=== PATIENT | female | born 1955 | race Asian ===

== ENCOUNTER → 2016-08-20 | Outpatient (CLI) | payer OTHER ==
[~2016-08-20] MED LIST: LRT5 PO; SULF800T23 PO; [UNRECOGNIZED DRUG - REMARK]
--- NOTE | 2016-08-20 15:55 | MAMMOGRAPHY REPORT ---
BILATERAL DIGITAL SCREENING MAMMOGRAM TOMOSYNTHESIS WITH CAD: 08/20/2016 CLINICAL HISTORY: Routine screening examination. TECHNIQUE: Breast tomosynthesis in addition to standard 2D mammography was performed. Current study was also evaluated with a Computer Aided Detection (CAD) system. COMPARISON: Comparison is made to exams dated: 01/02/2015 mammogram, 12/22/2013 mammogram, 01/03/2012 mammogram, 11/06/2010 mammogram - [facility], 12/02/2007, and 11/24/2007. BREAST COMPOSITION: The tissue of both breasts is heterogeneously dense, which may obscure small mas ses. FINDINGS: The parenchymal pattern is unchanged. No developing mass, architectural distortion or clus ter of suspicious microcalcifications is seen in either breast. IMPRESSION: ACR BI-RADS CATEGORY 2: BENIGN There is no mammographic evidence of malignancy. A 1 year screening mammogram is recommended. The pa tient will receive written notification of the results. Approximately 10% of breast cancers are not detected with mammography. A negative mammographic report should not delay biopsy if a clinically suggestive mass is present. Bonny Chiang M.D. ay/:08/20/2016 14:56:34 Promotion Writer: Kimberly DUPREE(John)(Roddy), [facility] letter sent: Normal 1/2 BI-RADS Code: ACR BI-RADS Category 2: Benign
== END | disposition home or self-care (01) ==
LOC: C.MAMM 13:06
PROVIDERS: ATTEND Family Medicine
DX: Z12.31 Encounter for screening mammogram for malignant neoplasm of breast (principal)

== ENCOUNTER 2022-04-28 09:41 | Observation (INO) ==
[2022-04-28] MEDS ORDERED: ALBUT/IPRATROP 3MG/0.5MG NEB 3 ML VIAL NEB STA ×3 (10:08→11:43)
[2022-04-28] MEDS ORDERED: methylPREDNISolone 125 MG/2 ML VIAL IV STA (10:08)
--- NOTE | 2022-04-28 10:37 | XRay Report ---
XR chest 1V portable HISTORY: Shortness of breath. COMPARISON: Chest 11/14/2017. FINDINGS: The lungs are clear. The heart is normal in size. There is a mildly tortuous thoracic aorta again noted. No pleural effusions. No pneumothorax. IMPRESSION: No acute process. ACT 112: Negative or not required by law. Electronically signed by: Carlos Frank M.D. 04/28/2022 10:36 AM
[2022-04-28 10:45] LABS: Basophils # (auto) 0.03 K/uL (0-0.2); Basophils % (auto) 0.4 %; Eosinophils # (auto) 0.74 K/uL (0-0.50); Eosinophils % (auto) 8.9 %; Hematocrit (blood only) 42.6 % (37.0-47.0); Hemoglobin 14.5 g/dl (12.0-16.0); Immature Granulocytes # (auto) 0.02 K/uL (0.01-0.20); Immature Granulocytes % (auto) 0.2 %; Lymphocytes # (auto) 1.83 K/uL (1.2-3.4); Mean Corpuscular Hemoglobin 30.8 pg (25.0-34.0); Mean Corpuscular Volume 90.4 fL (80.0-100.0); Mean Platelet Volume 10.5 fL (9.4-12.4); Monocytes # (auto) 0.46 K/uL (0.11-0.59); Monocytes % (auto) 5.5 %; Neutrophils # (auto) 5.22 K/uL (1.40-6.50); Platelet Count 253 K/uL (130-400); RDW Coefficient of Variation 12.3 % (11.5-14.5); Red Blood Count 4.71 M/uL (4.20-5.40)
[2022-04-28 10:46] LABS: Base Excess VBG 0.2 mEq/L; HCO3 VBG 27 mmol/L; Oxygen Saturation VBG 83.7 %; PCO2 VBG 48 mmHg (38-50); PO2 VBG 51 mmHg; pH VBG 7.35 (7.36-7.41)
[2022-04-28 11:02] LABS: Albumin Level 4.2 gm/dl (3.4-5.0); BUN Creatinine Ratio 23.3 (10-20); Bilirubin Direct 0.2 mg/dl (0-0.2); Bilirubin,Total 0.7 mg/dl (0.2-1.0); Calcium 9.1 mg/dl (8.5-10.1); Creatinine Clr Calc Pharmacy 79.7 ml/min; Est GFR (African American) 110.9 ml/min; Est GFR (Non-African American) 95.7 ml/min; Magnesium 1.9 mg/dl (1.7-2.4); Total Protein 7.3 gm/dl (6.0-8.3)
[2022-04-28 11:06] LABS: Troponin I High Sensitivity 4.9 pg/ml (0-14)
[2022-04-28 11:10] LABS: Partial Thromboplastin Time 26.7 Seconds (21.0-31.0); Prothrombin Time 10.7 Seconds (9.0-12.0)
[2022-04-28 11:36] LABS: Influenza A virus by PCR Negative (Neg); Influenza B virus by PCR Negative (Neg); RSV by PCR Negative (Neg); SARS CoV2 RNA(COVID-19) Ceph NEGATIVE (Negative)
[2022-04-28 12:28] LABS: Appearance Urine Clear (Clear); Bacteria Urine Automated Negative (Negative); Bilirubin Urine Negative (Negative); Blood Urine Trace (Negative); Cast Urine Automated 0 /lpf (0-5); Color Urine Yellow; Epithelial Cell Urine Auto >30 /lpf (0-5); Glucose Urine UA Negative (Negative); Ketones Urine Negative (Negative); Leukocyte Esterase Urine Negative (Negative); Nitrite Urine Negative (Negative); Protein Urine Negative (Negative); RBC Urine Automated 0-4 /hpf (0-4); Specific Gravity Urine 1.012 (1.000-1.030); Urobilinogen Urine Negative (Negative); pH Urine 6.5 (4.5-7.5)
--- NOTE | 2022-04-28 12:41 | Emergency Department Note ---
History of Present Illness General Chief Complaint: Shortness of Breath/Dyspnea Stated Complaint: DIFFICULTY BREATHING, COUGH Time Seen by Provider: 04/28/22 10:02 History of Present Illness Provider Complaint: shortness of breath and cough Onset (ago): week(s) (1) Severity: moderate Consistency/Duration: + progressively worsening Maximum Pain Intensity: 8 Relieved By: + nothing Exacerbated By: + exertion, + coughing and + talking Context: + recent illness; no choking/aspiration or no recent travel Known history of: COPD Associated symptoms: + cough, + wheezing, + sputum production and + chest congestion; no fever, no palpitations or no hemoptysis HPI Narrative: Patient also reports dysuria Related Data Home oxygen amount: none Home Medications Medication Instructions Recorded Confirmed Type albuterol sulfate 90 mcg/actuation 2 puff inhalation QID 04/28/22 04/28/22 History aerosol inhaler alprazolam 0.5 mg tablet 0.5 mg PO TID PRN Anxiety 04/28/22 04/28/22 History atorvastatin 10 mg tablet 10 mg PO QAM 04/28/22 04/28/22 History metformin 500 mg tablet,extended 500 mg PO QAM 04/28/22 04/28/22 History release 24 hr Allergies Allergy/AdvReac Type Severity Reaction Status Date / Time Penicillins Allergy Unknown Verified 04/28/22 10:44 Past Med/Surg History Medical History COPD (chronic obstructive pulmonary disease) No pertinent family history Surgical History No pertinent past surgical history Social History Smoking Status: Current every day smoker Feels Safe at Home: Yes Physical Exam Vital Signs: Vital Signs - 24 hr 04/28/22 09:49 04/28/22 10:02 04/28/22 10:00 Temperature 36.8 C Temperature Source Temporal Artery Sc an Pulse Rate 100 H Pulse Rate from Sp O2 Sensor Respiratory Rate 22 Respiratory Effort / Characteristics Labored Non-Labored Sponta neous Respiratory Depth Normal Respiratory Patter n Regular Blood Pressure 174/103 H Blood Pressure Ene n 126 Pulse Oximetry 90 89 L Oxygen Delivery Me thod Room Air Room Air Room Air Oxygen Flow Rate 0 Sepsis Recent Feve r Within 48 Hours No Sepsis New/Unexpla ined Change in Men raul Status No Sepsis Action Take n by Nursing No Action Required Oxygen Flow Rate - Titration 2 Pulse Oximetry Pos t Tiitration 96 04/28/22 10:00 04/28/22 10:12 04/28/22 10:11 Temperature Temperature Source Pulse Rate 100 H 100 H Pulse Rate from Sp O2 Sensor 99 H Respiratory Rate 18 Respiratory Effort / Characteristics Respiratory Depth Respiratory Patter n Blood Pressure Blood Pressure Ene n Pulse Oximetry 89 L 95 Oxygen Delivery Me thod Room Air Nasal Cannula Oxygen Flow Rate 0 2 Sepsis Recent Feve r Within 48 Hours Sepsis New/Unexpla ined Change in Men raul Status Sepsis Action Take n by Nursing Oxygen Flow Rate - Titration Pulse Oximetry Pos t Tiitration 04/28/22 11:00 04/28/22 11:00 Temperature Temperature Source Pulse Rate 94 H Pulse Rate from Sp O2 Sensor 93 H Respiratory Rate 19 Respiratory Effort / Characteristics Respiratory Depth Respiratory Patter n Blood Pressure 153/88 H Blood Pressure Ene n 109 Pulse Oximetry 97 Oxygen Delivery Me thod Nebulizer Oxygen Flow Rate Sepsis Recent Feve r Within 48 Hours Sepsis New/Unexpla ined Change in Men raul Status Sepsis Action Take n by Nursing Oxygen Flow Rate - Titration Pulse Oximetry Pos t Tiitration Physical Exam: Physical Exam GENERAL: oriented to person, place, and time. appears well-developed and well- nourished. HENT: Exam performed. - Head: Normocephalic and atraumatic. EYES: Conjunctivae and EOM are normal. Right eye exhibits no discharge. Left eye exhibits no discharge. No scleral icterus. NECK: Normal range of motion. Neck supple. No JVD present. CV: Normal rate, regular rhythm, normal heart sounds and intact distal pulses. There is no peripheral edema. Palpable radial pulses bue. PULM/CHEST: Diffuse expiratory wheezes. ABD: The abdomen is soft. There is no tenderness. NEURO: Motor and sensation grossly intact. SKIN: Skin is warm and dry. He is not diaphoretic. PSYCH: normal mood and affect. Behavior is normal. Judgment and thought content normal. Course Course 1002: The patient was evaluated in room B5. A complete history and physical exam was performed Cardiac monitoring: An order was placed for continuous cardiac monitoring. The monitor shows a rate of 90 with sinus rhythm interpreted by me Patient was found to be hypoxic at 88% on room air. Supplemental oxygen was applied which improved the patient with oxygen saturation. Breathing treatments and steroids ordered for the patient. 1130: Vital signs stable on supplemental oxygen via nasal cannula. Labs and imaging within normal limits. Status post DuoNeb Solu-Medrol the patient's wheezing is improved. Patient will be admitted to the [facility] team. Administered Medications Discontinued Medications Albuterol (Albut/Ipratrop 3mg/0.5mg Neb 3 Ml Vial) 3 ml NEB NOW STA; Protocol Stop: 04/28/22 10:09 Last Admin: 04/28/22 10:39 Dose: 3 ml Documented By: ABILIO Albuterol (Albut/Ipratrop 3mg/0.5mg Neb 3 Ml Vial) 3 ml NEB NOW STA; Protocol Stop: 04/28/22 10:11 Last Admin: 04/28/22 10:39 Dose: 3 ml Documented By: ABILIO Albuterol (Albut/Ipratrop 3mg/0.5mg Neb 3 Ml Vial) 3 ml NEB NOW STA; Protocol Stop: 04/28/22 11:44 Last Admin: 04/28/22 12:25 Dose: 3 ml Documented By: ABILIO Methylprednisolone (Methylprednisolone 125 Mg/2 Ml Vial) 125 mg IV NOW STA Stop: 04/28/22 10:09 Last Admin: 04/28/22 10:39 Dose: 125 mg Documented By: ABILIO Medical Decision Making Laboratory Data Attestation: I reviewed the patient's lab results. 04/28/22 10:21 04/28/22 10:21 Lab Results 04/28/22 04/28/22 04/28/22 Range/Units 10:21 10:21 10:21 WBC 8.30 (4.8-10.8) K/ul RBC 4.71 (4.20-5.40) M/uL Hgb 14.5 (12.0-16.0) g/dl Hct 42.6 (37.0-47.0) % MCV 90.4 (80.0-100.0) fL MCH 30.8 (25.0-34.0) pg MCHC 34.0 (32.0-36.0) g/dL RDW Std Deviation 41.0 (36.4-46.3) fL RDW Coeff of Darcy 12.3 (11.5-14.5) % Plt Count 253 (130-400) K/uL MPV 10.5 (9.4-12.4) fL Immature Gran % (Auto) 0.2 % Neut % (Auto) 63.0 % Lymph % (Auto) 22.0 % Clayton % (Auto) 5.5 % Eos % (Auto) 8.9 % Baso % (Auto) 0.4 % Neut # (Auto) 5.22 (1.40-6.50) K/uL Lymph # (Auto) 1.83 (1.2-3.4) K/uL Clayton # (Auto) 0.46 (0.11-0.59) K/uL Eos # (Auto) 0.74 H (0-0.50) K/uL Baso # (Auto) 0.03 (0-0.2) K/uL Immature Gran # (Auto) 0.02 (0.01-0.20) K/uL PT 10.7 (9.0-12.0) Seconds INR 1.0 (0.9-1.1) APTT 26.7 (21.0-31.0) Seconds PTT Ratio 1.0 VBG pH (7.36-7.41) VBG pCO2 (38-50) mmHg VBG pO2 mmHg VBG HCO3 mmol/L VBG O2 Saturation % VBG Base Excess mEq/L Sodium 140 (136-145) mmol/L Potassium 4.0 (3.5-5.1) mmol/L Chloride 108 H (98-107) mmol/L Carbon Dioxide 27 (21-32) mmol/L Anion Gap 5 (3-11) BUN 14 (6-23) mg/dl Creatinine 0.60 (0.6-1.2) mg/dl Est Cr Clr Drug Dosing 79.7 ml/min Est GFR ( Amer) 110.9 ml/min Est GFR (Non-Af Amer) 95.7 ml/min BUN/Creatinine Ratio 23.3 H (10-20) Glucose 233 H (70-99(Fasting)) mg/dl Calcium 9.1 (8.5-10.1) mg/dl Magnesium 1.9 (1.7-2.4) mg/dl Total Bilirubin 0.7 (0.2-1.0) mg/dl Direct Bilirubin 0.2 (0-0.2) mg/dl AST 16 (13-39) U/L ALT 17 (7-52) U/L Alkaline Phosphatase 82 (34-104) U/L Troponin I High Sens 4.9 (0-14) pg/ml Total Protein 7.3 (6.0-8.3) gm/dl Albumin 4.2 (3.4-5.0) gm/dl Lipase 26 (11-82) U/L Urine Color Urine Appearance (Clear) Urine pH (4.5-7.5) Ur Specific [place] (1.000-1.030) Urine Protein (Negative) Urine Glucose (UA) (Negative) Urine Ketones (Negative) Urine Blood (Negative) Urine Nitrite (Negative) Urine Bilirubin (Negative) Urine Urobilinogen (Negative) Ur Leukocyte Esterase (Negative) Urine WBC (Auto) (0-5) /hpf Urine RBC (Auto) (0-4) /hpf U Hyaline Cast (Auto) (0-5) /lpf U Epithel Cells (Auto) (0-5) /lpf Urine Bacteria (Auto) (Negative) SARS-CoV-2 (PCR) (Negative) Influenza Type A (PCR) (Neg) Influenza Type B (PCR) (Neg) RSV (RT-PCR) (Neg) 04/28/22 04/28/22 04/28/22 Range/Units 10:25 10:51 12:00 WBC (4.8-10.8) K/ul RBC (4.20-5.40) M/uL Hgb (12.0-16.0) g/dl Hct (37.0-47.0) % MCV (80.0-100.0) fL MCH (25.0-34.0) pg MCHC (32.0-36.0) g/dL RDW Std Deviation (36.4-46.3) fL RDW Coeff of Darcy (11.5-14.5) % Plt Count (130-400) K/uL MPV (9.4-12.4) fL Immature Gran % (Auto) % Neut % (Auto) % Lymph % (Auto) % Clayton % (Auto) % Eos % (Auto) % Baso % (Auto) % Neut # (Auto) (1.40-6.50) K/uL Lymph # (Auto) (1.2-3.4) K/uL Clayton # (Auto) (0.11-0.59) K/uL Eos # (Auto) (0-0.50) K/uL Baso # (Auto) (0-0.2) K/uL Immature Gran # (Auto) (0.01-0.20) K/uL PT (9.0-12.0) Seconds INR (0.9-1.1) APTT (21.0-31.0) Seconds PTT Ratio VBG pH 7.35 L (7.36-7.41) VBG pCO2 48 (38-50) mmHg VBG pO2 51 mmHg VBG HCO3 27 mmol/L VBG O2 Saturation 83.7 % VBG Base Excess 0.2 mEq/L Sodium (136-145) mmol/L Potassium (3.5-5.1) mmol/L Chloride (98-107) mmol/L Carbon Dioxide (21-32) mmol/L Anion Gap (3-11) BUN (6-23) mg/dl Creatinine (0.6-1.2) mg/dl Est Cr Clr Drug Dosing ml/min Est GFR ( Amer) ml/min Est GFR (Non-Af Amer) ml/min BUN/Creatinine Ratio (10-20) Glucose (70-99(Fasting)) mg/dl Calcium (8.5-10.1) mg/dl Magnesium (1.7-2.4) mg/dl Total Bilirubin (0.2-1.0) mg/dl Direct Bilirubin (0-0.2) mg/dl AST (13-39) U/L ALT (7-52) U/L Alkaline Phosphatase (34-104) U/L Troponin I High Sens (0-14) pg/ml Total Protein (6.0-8.3) gm/dl Albumin (3.4-5.0) gm/dl Lipase (11-82) U/L Urine Color Yellow Urine Appearance Clear (Clear) Urine pH 6.5 (4.5-7.5) Ur Specific [place] 1.012 (1.000-1.030) Urine Protein Negative (Negative) Urine Glucose (UA) Negative (Negative) Urine Ketones Negative (Negative) Urine Blood Trace H (Negative) Urine Nitrite Negative (Negative) Urine Bilirubin Negative (Negative) Urine Urobilinogen Negative (Negative) Ur Leukocyte Esterase Negative (Negative) Urine WBC (Auto) 1-5 (0-5) /hpf Urine RBC (Auto) 0-4 (0-4) /hpf U Hyaline Cast (Auto) 0 (0-5) /lpf U Epithel Cells (Auto) >30 H (0-5) /lpf Urine Bacteria (Auto) Negative (Negative) SARS-CoV-2 (PCR) NEGATIVE (Negative) Influenza Type A (PCR) Negative (Neg) Influenza Type B (PCR) Negative (Neg) RSV (RT-PCR) Negative (Neg) Imaging Data Attestation: I personally reviewed and interpreted this imaging study as follows: My Impression: Chest x-ray negative. Airway clear. No pneumothorax. No consolidation. No cardiomegaly or cephalization.. No free air under the diaphragm. No fractures of the skeletal structures. Radiologist's Impression: Chest X-Ray 04/28/22 10:08 XR chest 1V portable HISTORY: Shortness of breath. COMPARISON: Chest 11/14/2017. FINDINGS: The lungs are clear. The heart is normal in size. There is a mildly tortuous thoracic aorta again noted. No pleural effusions. No pneumothorax. IMPRESSION: No acute process. ACT 112: Negative or not required by law. Electronically signed by: Carlos Frank M.D. 04/28/2022 10:36 AM ECG Data Attestation: I personally reviewed and interpreted this ECG as follows: Interpretation: Sinus rhythm with rate 90. OH QRS and QTc intervals within normal limits. No ST elevation or ST depression MDM Narrative 1002: The patient was evaluated in room B5. A complete history and physical exam was performed Cardiac monitoring: An order was placed for continuous cardiac monitoring. The monitor shows a rate of 90 with sinus rhythm interpreted by me Patient was found to be hypoxic at 88% on room air. Supplemental oxygen was applied which improved the patient with oxygen saturation. Breathing treatments and steroids ordered for the patient. 1130: Vital signs stable on supplemental oxygen via nasal cannula. Labs and imaging within normal limits. Status post DuoNeb Solu-Medrol the patient's wheezing is improved. Patient will be admitted to the [facility] team. Impression & Plan Hypoxia, COPD (chronic obstructive pulmonary disease) Critical Care Time Critical Care Time: Yes Total Critical Care Time: 41 I have personally spent greater than 41 minutes of critical care time in the direct management of this patient. This includes bedside care, interpretation of diagnostic studies, and testing, discussion with consultants, patient, and family members, and other required patient management activities. This 41 mi nutes is in excess of all separately billable procedures. Discharge Plan Visit Data Chief Complaint: Shortness of Breath/Dyspnea Stated Complaint: DIFFICULTY BREATHING, COUGH ED Provider: Miguel Musa Discharge Problem: Hypoxia, COPD (chronic obstructive pulmonary disease) Patient Disposition: Admitted As Inpatient Forms Stand Alone Forms: [facility] Prescriptions Prescriptions: No Action atorvastatin 10 mg tablet 10 mg PO QAM alprazolam 0.5 mg tablet 0.5 mg PO TID PRN (Reason: Anxiety) albuterol sulfate 90 mcg/actuation HFA aerosol inhaler 2 puff INHALATION QID metformin 500 mg tablet extended release 24 hr 500 mg PO QAM Referrals Referrals: Manuela Hay PA-C [Primary Care Provider] -
[2022-04-28] MEDS ORDERED: ONDANSETRON INJ 2 MG/ML 2 ML VIAL IV PRN (14:22)
[2022-04-28] MEDS ORDERED: ALBUT/IPRATROP 3MG/0.5MG NEB 3 ML VIAL NEB PRN (14:22)
[2022-04-28] MEDS ORDERED: GLUCOSE 40% GEL 15 GM TUBE PO PRN (14:22)
[2022-04-28] MEDS ORDERED: ALPRAZolam 0.5 MG TABLET PO PRN (14:22)
[2022-04-28] MEDS ORDERED: GLUCAGON FOR INJ 1 MG VIAL SQ PRN (14:22)
[2022-04-28] MEDS ORDERED: ACETAMINOPHEN 325 MG TAB PO PRN (14:22)
[2022-04-28] MEDS ORDERED: CARBOHYDRATES FOR HYPOGLYCEMIA PO PRN (14:22)
[2022-04-28] MEDS ORDERED: NITROGLYCERIN SL 0.4 MG/TAB TAB SL PRN (14:22)
[2022-04-28] MEDS ORDERED: GLUCOSE 10 TAB/TUBE PO PRN (14:22)
[2022-04-28] MEDS ORDERED: ALBUTEROL HFA 8 GM INHALER INH PRN (14:22)
[2022-04-28] MEDS ORDERED: DEXTROSE 50% 50 ML SYRINGE IV PRN (14:22)
[2022-04-28] MEDS ORDERED: POLYETHYLENE (MIRALAX) 17 GM PACK PO PRN (14:22)
--- NOTE | 2022-04-28 14:41 | History and Physical Report ---
DATE OF ADMISSION: 04/28/2022. CHIEF COMPLAINT: Shortness of breath. HISTORY OF PRESENT ILLNESS: This is a 67-year-old female with past medical history significant for diabetes, COPD, osteoarthritis, depression, generalized anxiety disorder, presents with shortness of breath, going for last 5 to 6 days, bringing cough, bringing whitish phlegm. Denies any fevers. Has some chest soreness from coughing. Has some abdominal soreness more with coughing. Normal bowel and bladder movements. Denies any headache. No blurred visions. Has some runny nose that is improving. No sore throat. Currently, resting comfortably and hemodynamically stable. ALLERGIES: PENICILLIN. PAST MEDICAL HISTORY: As mentioned above. PAST SURGICAL HISTORY: , colonoscopy, cystoscopy, lithotripsy. MEDICATIONS: The patient is on albuterol 2 puffs p.r.n., alprazolam 0.5 mg p.o. t.i.d. p.r.n., atorvastatin 10 mg p.o. a.m., metformin 500 mg p.o. a.m. FAMILY HISTORY: Significant for mother had cancer, eye problems, heart disorder and stroke; father had eye problems. SOCIAL HISTORY: . Smoked half pack a day for last 25 years. No alcohol, no drug use. REVIEW OF SYSTEMS: As per HPI. Rest of the review of systems is negative. PHYSICAL EXAMINATION: GENERAL: The patient is alert, oriented, not in acute distress. VITAL SIGNS: Temperature 36.8, pulse 94, respiratory rate 19, blood pressure 153/88, oxygen 97%. HEENT: Pupils equal, round and reactive to light. Oral mucosa moist. NECK: No JVD, no neck masses. CARDIOVASCULAR: S1 and S2 heard. Regular rate and rhythm. No murmur, no gallop. RESPIRATORY SYSTEM: Normal AP diameter. No accessory muscle use. No wheezing, no crackles. ABDOMEN: Soft, bowel sounds present. RESPIRATORY: Normal AP diameter. No accessory muscle use. Mild occasional wheezing, no crackles. ABDOMEN: Soft, bowel sounds present, nontender, no distention. CENTRAL NERVOUS SYSTEM: Cranial nerves II through XII grossly intact, nonfocal. EXTREMITIES: No edema, no erythema. LABORATORY DATA: WBC 8.3, hemoglobin 14.5, hematocrit 42.6, platelets 253. PT 10.7, INR 1, APTT 26.7. Venous blood gas, pH of 7.35, pCO2 of 48. Sodium 140, potassium 4, chloride 108, bicarbonate 27, BUN 14, creatinine 0.6, serum glucose 233, calcium 9.1, magnesium 1.9, total bilirubin 0.7, direct bilirubin 0.2, AST 16, ALT 17, alkaline phosphatase 82. Troponin I high sensitivity 4.9. Lipase 26. Urinalysis negative. SARS-CoV-2 PCR negative. Influenza A and B PCR negative. RSV PCR negative. IMAGING DATA: Chest x-ray, no acute process. EKG: Normal sinus rhythm at a rate 90, nonspecific ST abnormalities. ASSESSMENT AND PLAN: This is a 67-year-old female who presents with shortness of breath. 1. Shortness of breath, Mostly chronic obstructive pulmonary disease exacerbation, history of ongoing tobacco abuse. Uses only albuterol inhaler at home. We will place on Solu-Medrol 40 t.i.d., DuoNebs around the clock and p.r.n. p.o. doxycycline. Follow the response. The patient was 89% on room air, currently requiring oxygen Two step prior to discharge. 2. History of diabetes, on metformin. Hold the metformin, placed on insulin sliding scale. Follow the blood sugars. The patient is getting steroids. 3. Hyperlipidemia, on statin. 4. Tobacco abuse, needs counseling. 5. Generalized anxiety disorder, on Ativan p.r.n. 6. Chest soreness. Mostlly from cough. Will follow repeat ekg and troponin 7. Abdominal soreness. If worsening will do image study 8. Deep venous thrombosis prophylaxis, on Lovenox. DISPOSITION: Closely monitor in the med tele. Expect to discharge home and follow with family doctor. Job ID: [id number] [facility]
[2022-04-28] MEDS: ALBUT/IPRATROP 3MG/0.5MG NEB 3 ML VIAL NEB SCH ×2 (15:11→19:14)
[2022-04-28] MEDS: methylPREDNISolone 40 MG in SYRINGE 0 ML IV SCH ×2 (15:41→20:47)
[2022-04-28] MEDS: ENOXAPARIN INJ 40 MG/0.4 ML SYR SQ SCH (15:41)
[2022-04-28] MEDS: DOXYCYCLINE HYCLATE 100 MG CAP PO SCH ×2 (15:41→20:49)
[2022-04-28] MEDS: INSULIN ASPART PER UNIT SC SCH ×2 (16:51→20:47)
--- NOTE | 2022-04-28 19:04 | Electrocardiogram Report ---
Test Reason : Blood Pressure : / mmHG Vent. Rate : 090 BPM Atrial Rate : 090 BPM P-R Int : 140 ms QRS Dur : 090 ms QT Int : 372 ms P-R-T Axes : 062 077 047 degrees QTc Int : 455 ms Poor data quality, interpretation may be adversely affected Normal sinus rhythm Nonspecific ST abnormality Abnormal ECG No previous ECGs available Confirmed by Mumtaz Nash ([id number]) on 04/28/2022 7:04:16 PM Referred By: REFERRED SELF Confirmed By:Mumtaz Nash
[2022-04-29 06:32] LABS: BUN Creatinine Ratio 37.3 (10-20); Calcium 9.3 mg/dl (8.5-10.1); Creatinine Clr Calc Pharmacy 71.9 ml/min; Est GFR (African American) 106.9 ml/min; Est GFR (Non-African American) 92.2 ml/min
[2022-04-29 06:36] LABS: Basophils # (auto) 0.02 K/uL (0-0.2); Basophils % (auto) 0.1 %; Hematocrit (blood only) 40.2 % (37.0-47.0); Hemoglobin 13.7 g/dl (12.0-16.0); Immature Granulocytes # (auto) 0.09 K/uL (0.01-0.20); Immature Granulocytes % (auto) 0.5 %; Lymphocytes # (auto) 1.73 K/uL (1.2-3.4); Lymphocytes % (auto) 9.1 %; Mean Corpuscular Hemoglobin 30.3 pg (25.0-34.0); Mean Corpuscular Hgb Conc 34.1 g/dL (32.0-36.0); Mean Corpuscular Volume 88.9 fL (80.0-100.0); Monocytes # (auto) 0.27 K/uL (0.11-0.59); Monocytes % (auto) 1.4 %; Neutrophils % (auto) 88.9 %; Platelet Count 278 K/uL (130-400); RDW Coefficient of Variation 12.3 % (11.5-14.5); RDW Standard Deviation 40.5 fL (36.4-46.3); Red Blood Count 4.52 M/uL (4.20-5.40); White Blood Count 19.11 K/ul (4.8-10.8)
[2022-04-29 06:39] LABS: Troponin I High Sensitivity 4.8 pg/ml (0-14)
[2022-04-29] MEDS: ALBUT/IPRATROP 3MG/0.5MG NEB 3 ML VIAL NEB SCH ×3 (07:06→15:58)
[2022-04-29] MEDS ORDERED: ATORVASTATIN 10 MG TAB PO SCH (09:00)
[2022-04-29] MEDS: methylPREDNISolone 40 MG in SYRINGE 0 ML IV SCH ×2 (09:08→13:11)
[2022-04-29] MEDS: DOXYCYCLINE HYCLATE 100 MG CAP PO SCH (09:08)
[2022-04-29] MEDS: INSULIN ASPART PER UNIT SC SCH ×3 (09:08→16:49)
[2022-04-29 10:57] LABS: Estimated Average Glucose 140 mg/dl; Hemoglobin A1C 6.5 % (4.5-5.6)
[2022-04-29] MEDS ORDERED: LANTUS PER UNIT CHARGE SQ SCH (12:00)
--- NOTE | 2022-04-29 12:40 | Electrocardiogram Report ---
Test Reason : Blood Pressure : / mmHG Vent. Rate : 075 BPM Atrial Rate : 075 BPM P-R Int : 140 ms QRS Dur : 092 ms QT Int : 456 ms P-R-T Axes : 032 035 021 degrees QTc Int : 509 ms Normal sinus rhythm T wave abnormality, consider anterolateral ischemia Prolonged QT Abnormal ECG When compared with ECG of 28-APR-2022 10:13, Nonspecific T wave abnormality, worse in Inferior leads T wave inversion now evident in Anterolateral leads Confirmed by Oscar Cornelius ([id number]) on 04/29/2022 12:40:02 PM Referred By: REFERRED SELF Confirmed By:Oscar Cornelius
[2022-04-29] MEDS ORDERED: OPTIRAY 320 500ml IV ONE (14:05)
--- NOTE | 2022-04-29 14:54 | CT Scan Report ---
CT angio chest PE protocol CT DOSE: 408.44 mGycm HISTORY: 67 years-old Female with PE. Acute cough with shortness of breath TECHNIQUE: Multiple CTA images of the chest were obtained after the intravenous administration of 111 ml Optiray. Coronal and sagittal MIPS were obtained from the axial data set and were submitted for review. All measurements were obtained according to NASCET criteria. A dose lowering technique was u tilized adhering to the principles of ALARA. COMPARISON: Chest radiograph 04/28/2022. FINDINGS: CTA: Mild to moderate cardiomegaly. No pericardial effusion. Mild coronary artery calcifications. Unremark able thoracic aorta. No pulmonary emboli identified. CT CHEST: Heterogeneous mildly enlarged thyroid with several mostly subcentimeter thyroid nodules. Soft tissue attenuating 4.7 x 2.7 x 4.3 cm ovoid circumscribed anterior mediastinal structure. No hilar lymphaden opathy. No pneumothorax, pleural effusion or overt pulmonary edema. Mild bronchial wall thickening wi th bibasilar mucous plugging. Mild subsegmental bibasilar atelectasis. There are no suspicious pulmon latricia nodules or masses identified. No acute process of the imaged upper abdomen. 8 mm hypodense focus of the right hepatic lobe on image 24 is suggestive of a probable cyst. Unremarkable soft tissues. No acute fracture. IMPRESSION: 1. No pulmonary emboli identified. 2. Bronchial wall thickening suggestive of bronchitis or reactive airway disease with mild bibasilar mucous plugging and atelectasis. 3. Soft tissue attenuating circumscribed 4.7 cm anterior mediastinal structure is nonspecific. An epi thelial thymic neoplasm is the primary differential consideration. ACT 112: Negative or not required by law. The above report was generated using voice recognition software. It may contain grammatical, syntax o r spelling errors. Electronically signed by: Spencer Rivera M.D. 04/29/2022 2:52 PM
[2022-04-29] MEDS: ENOXAPARIN INJ 40 MG/0.4 ML SYR SQ SCH (15:04)
--- NOTE | 2022-04-29 17:28 | CT Scan Report ---
ABDOMEN AND PELVIS CT WITHOUT CONTRAST CT DOSE: 306.98 mGy.cm HISTORY: vague pelvic discomfort x 2 weeks TECHNIQUE: Multiaxial CT images of the abdomen and pelvis were performed without contrast. A dose lo wering technique was utilized adhering to the principles of ALARA. COMPARISON STUDY: Abdomen and pelvis CT 10/03/2006. FINDINGS: Mild dependent changes seen at the lung bases. No pneumoperitoneum. No pneumatosis. No acut e fractures identified. [id number] degenerative changes within the lumbar spine most pronounced at the L5-S1 level. There is grade 1 anterolisthesis of L4 on L5. The unenhanced liver, gallbladder, pancreas, spleen, and adrenal glands unremarkable. There is residual contrast within the renal colle cting systems from the recent CT examination. No hydronephrosis. Mild urothelial thickening within th e left ureteropelvic junction. Possible 4 mm stone within the left ureteropelvic junction on image 18 0. However, this is difficult to confirm given the residual contrast within the ureter. No bladder wa ll thickening. The uterus and bilateral adnexa are within normal limits. No retroperitoneal lymphaden opathy. Normal caliber abdominal aorta. Suboptimal evaluation for bowel pathology due to the lack of intravenous and oral contrast. However, there is no definite bowel wall thickening or obstruction. No rmal appendix. IMPRESSION: 1. Possible 4 mm nonobstructing stone within the left ureteropelvic junction. However, this is diffic ult to confirm due to the residual contrast within the urinary system. Therefore, follow-up noncontra st abdomen and pelvis CT should be performed in approximately 24-48 hours to ensure clearance of the urinary contrast . 2. No bowel wall thickening or obstruction. 3. Normal appendix. ACT 112: Negative or not required by law. Electronically signed by: Carlos Frank M.D. 04/29/2022 5:26 PM
--- NOTE | 2022-04-29 17:56 | Discharge Summary ---
Discharge Summary Date of Service April 29, 2022 Notes For Next Care Provider New anterior mediastinal mass found on CT scan-needs outpatient workup Reported vague soreness in her abdomen--CT a/p revealed possible 4mm nonobstructing kidney stone but couldn't tell for sure because of the prior contrast that had been given. If symptoms continue/worsen consider repeat abdominal imaging. Medication Changes From Visit Doxycycline/Prednisone given at discharge. Admission HPI Per Admitting Provider HISTORY OF PRESENT ILLNESS: This is a 67-year-old female with past medical history significant for diabetes, COPD, osteoarthritis, depression, generalized anxiety disorder, presents with shortness of breath, going for last 5 to 6 days, bringing cough, bringing whitish phlegm. Denies any fevers. Has some chest soreness from coughing. Has some abdominal soreness more with coughing. Normal bowel and bladder movements. Denies any headache. No blurred visions. Has some runny nose that is improving. No sore throat. Currently, resting comfortably and hemodynamically stable. Admission Exam Per Admitting Provider PHYSICAL EXAMINATION: GENERAL: The patient is alert, oriented, not in acute distress. VITAL SIGNS: Temperature 36.8, pulse 94, respiratory rate 19, blood pressure 153/88, oxygen 97%. HEENT: Pupils equal, round and reactive to light. Oral mucosa moist. NECK: No JVD, no neck masses. CARDIOVASCULAR: S1 and S2 heard. Regular rate and rhythm. No murmur, no gallop. RESPIRATORY SYSTEM: Normal AP diameter. No accessory muscle use. No wheezing, no crackles. ABDOMEN: Soft, bowel sounds present. RESPIRATORY: Normal AP diameter. No accessory muscle use. Mild occasional wheezing, no crackles. ABDOMEN: Soft, bowel sounds present, nontender, no distention. CENTRAL NERVOUS SYSTEM: Cranial nerves II through XII grossly intact, nonfocal. EXTREMITIES: No edema, no erythema Principal Dx & Hospital Course #1 = Principal Diagnosis (1) COPD exacerbation: (2) Tobacco use disorder: (3) Hypoxia: Plan Patient is a 67-year-old female with COPD who actively smokes presenting with shortness of breath. She was admitted for a COPD exacerbation and treated with nebulized bronchodilator therapy and Solu-Medrol. On hospital day 2 she was improved and oxygen needs were also improved. She reported feeling better and was eager to return home. Because her chest x-ray was clear and she had the hypoxia without significant wheezing by my exam, we opted for a chest CT to rule out PE. This revealed no pulmonary embolus and bronchial wall thickening hyatt ggestive of bronchitis with mild mucous plugging and atelectasis. Mucous plugging and atelectasis were likely the cause of the hypoxia in addition to the COPD exacerbation. Notably she was found to have an incidental soft tissue circumscribed mass that was 4.7 cm in the anterior mediastinal compartment. An epithelial thymic neoplasm was thought to be the primary differential consideration. I discussed this finding with her in person, and her son by phone, and discussed with both of them that a thoracic surgeon would need to follow this up. Her primary care doctor, Chay Georges MD and Manuela Hay PA-C, who both see her regularly, were also contacted via [employer] text. They responded that they would help facilitate a referral to a thoracic surgeon in work-up of this mass. A primary care appointment was scheduled for them for May 06 prior to discharge. I did mention to her son it would be important for him to attend this visit to help with coordination of visits and he said he would make an effort for that. Aside from this, this patient reported a very vague pelvic "soreness" that had affected her for a few weeks. Urinalysis was unremarkable and she could not really define the soreness. She had been coughing which is was a possibility of where this came from but she felt better doing a CT scan. A CT abdomen pelvis without contrast was performed with the most notable finding being a possible 4 mm nonobstructing stone in the left ureteropelvic junction. However it is important to note it was difficult to confirm this as a stone due to the residual contrast within the urinary system. Therefore a follow-up noncontrast abdomen pelvis CT could be entertained in approximately 48 hours to ensure clearance of the urinary contrast. At time of discharge she was oxygenating well and had per passed a two-step test showing no needs for oxygen with ambulation. She was hemodynamically stable and afebrile with symptoms very improved. She was discharged in stable condition with close primary care follow-up recommended. Strict smoking cessation was strongly advised. Updated Medication List Medication Instructions Recorded Confirmed Type albuterol sulfate 90 mcg/actuation 2 puff inhalation QID 04/28/22 04/28/22 History aerosol inhaler alprazolam 0.5 mg tablet 0.5 mg PO TID PRN Anxiety 04/28/22 04/28/22 History atorvastatin 10 mg tablet 10 mg PO QAM 04/28/22 04/28/22 History metformin 500 mg tablet,extended 500 mg PO QAM 04/28/22 04/28/22 History release 24 hr doxycycline hyclate 100 mg capsule 100 mg PO BID #10 caps 04/29/22 Rx prednisone 20 mg tablet 40 mg PO DAILY #10 tabs 04/29/22 Rx Hospital Stay Data Consultations 04/28/22 11:29 ED Decision to Admit Stat 04/29/22 17:11 Burn CD for patient Routine Diagnostic Imagining Performed 04/29/22 12:42 CT angio chest PE protocol Urgent 04/29/22 16:26 CT abd pelvis wo con Routine Pending Results Patient Have Any Pending Studies at Discharge: No Discharge Instructions Given to Patient (Per Discharging Provider) Please take all medications as instructed on discharge list below. You are being given PREDNISONE to start 04/30 in the morning. Please take this once daily in the morning for the next 5 days. You are also being given DOXYCYCLINE which is an antibiotic to take for the next 5 days. Because you received contrast for the CAT scan, please avoid taking any metformin pills until at least 48 hours after the contrast was given. (restart ) It was thought that your shortness of breath was caused by a COPD exacerbation, which may have been brought on by a cold or virus. There was no evidence of pneumonia on your chest imaging, but mucous was present. Consider OTC Mucinex. Your chest CT reveals Soft tissue attenuating circumscribed 4.7 cm anterior mediastinal structure is nonspecific. An epithelial thymic neoplasm is the primary differential consideration. This will need to be followed up by a thoracic surgeon. They have offices in the [place], [place] area. Please obtain a referral to this specialist from your primary care physician when you follow-up with them after discharge. You underwent an abdominal/pelvis CAT scan which showed a possible 4mm nonobstructing stone on the left. It was difficult to tell if this was a stone or not because of the contrast given earlier today. If you continue to have abdominal discomfort, a repeat CAT scan or abdominal xray may be performed. Pl ease discuss how you are doing with this with your primary care provider at your follow-up appointment. Please see the date/time above for your scheduled PCP appointment following this hospital stay. Complete smoking cessation is strongly recommended for your health. It was a pleasure taking care of you! Please call if you have any questions or problems. You can reach a [facility] hospitalist on duty at [facility] 24 hours a day by calling [phone]. Take care of yourself. Leann Navarro, [facility]ist Total Time Total Time Spent Total Time Spent (In Minutes): 60
--- NOTE | 2022-04-30 15:24 | Communication Note ---
Date of Service: April 29, 2022 By CMS guidelines, a determination that the admission or continued stay is not medically necessary has been made by a member of the UR committee and a physician for this hospital stay, therefore a Code 44 will be completed and the Inpatient admission will be changed to outpatient. Akilah Cheng M.D.
== END 2022-04-29 18:38 | disposition home or self-care (01) ==
LOC: ED 09:41 → 2W 12:56 → INTOOBSV 12:56 → 2W 14:05